=== PATIENT | female | born 1950 | race Caucasian/White ===

== ENCOUNTER 2021-09-06 06:58 | Day surgery (SDC) | payer MEDICARE, BC ==
[2021-09-05 14:47] VITALS: BMI 26.5
[2021-09-06] MEDS ORDERED: Fentanyl 100 MCG/2 ML VIAL ONE (08:12)
[2021-09-06] MEDS ORDERED: EPINEPHrine 1 MG/ML AMP ONE (09:19)
[2021-09-06 09:26] LABS: Hemoglobin 13.1 g/dL (12.0-16.0)
[2021-09-06] MEDS ORDERED: Propofol 500 MG/50 ML VIAL ONE (09:27)
[2021-09-06] MEDS ORDERED: Lidocaine 1% PF 5 ML VIAL ONE (09:33)
[2021-09-06] MEDS ORDERED: Dexamethasone 20 MG/5 ML VIAL ONE (09:33)
[2021-09-06] MEDS ORDERED: Ondansetron PF 4 MG/2 ML Vial ONE (09:33)
[2021-09-06] MEDS ORDERED: Succinylcholine 200 MG/10 ml SYRINGE FS ONE (09:33)
[2021-09-06 09:43] LABS: Anion Gap 12 mmol/L (10-20); BUN (Urea Nitrogen) 13 mg/dL (9.8-20.1); Calc. Creatinine Clearance 84 mL/min (70-130); Calcium 9.2 mg/dL (7.8-10.44); Carbon Dioxide 29 mmol/L (23-31); Chloride 101 mmol/L (98-107); Glucose 97 mg/dL (83-110); Potassium 4.2 mmol/L (3.5-5.1); Sodium 138 mmol/L (136-145)
== END 2021-09-06 12:50 | disposition home or self-care (01) ==
LOC: SDC 06:58
PROVIDERS: ATTEND Specialist
PROC: 3E0F8GC Introduction of Other Therapeutic Substance into Respiratory Tract, Via Natural or Artificial Opening Endoscopic (ICD-10-PCS; principal; 2021-09-06)
DX: J38.01 Paralysis of vocal cords and larynx, unilateral (principal); J38.3 Other diseases of vocal cords; I10 Essential (primary) hypertension; M19.90 Unspecified osteoarthritis, unspecified site; Z79.899 Other long term (current) drug therapy; Z98.1 Arthrodesis status
CPT/HCPCS: 36415; 80048; 85014; 85018; 93005; 93010; J0171; J1100; J2405; J2704; J3010

== ENCOUNTER 2022-01-03 06:55 | Day surgery (SDC) | payer MEDICARE, BC ==
[2021-12-31 15:40] VITALS: BMI 28.0
[2022-01-03] MEDS ORDERED: Propofol 500 MG/50 ML VIAL ONE (07:56)
[2022-01-03] MEDS ORDERED: Fentanyl 250 MCG/5 ML VIAL ONE ×2 (07:56→10:12)
[2022-01-03] MEDS ORDERED: EPINEPHrine 1 MG/ML AMP ONE (08:36)
[2022-01-03] MEDS ORDERED: Ciprofloxacin 0.2% Otic (0.25ML CONTAINER) ONE (08:36)
[2022-01-03 08:40] LABS: Hemoglobin 13.5 g/dL (12.0-16.0)
[2022-01-03 09:34] LABS: Anion Gap 15 mmol/L (10-20); BUN (Urea Nitrogen) 9 mg/dL (9.8-20.1); Calc. Creatinine Clearance 87 mL/min (70-130); Calcium 9.4 mg/dL (7.8-10.44); Carbon Dioxide 19 mmol/L (23-31); Chloride 102 mmol/L (98-107); Glucose 85 mg/dL (83-110); Potassium 4.1 mmol/L (3.5-5.1); Sodium 132 mmol/L (136-145)
[2022-01-03] MEDS ORDERED: PROPOFOL 200 MG/20 ML VIAL ONE (09:36)
[2022-01-03] MEDS ORDERED: Dexamethasone 20 MG/5 ML VIAL ONE (09:36)
[2022-01-03] MEDS ORDERED: Ondansetron PF 4 MG/2 ML Vial ONE (09:36)
[2022-01-03] MEDS ORDERED: Lidocaine 1% PF 5 ML VIAL ONE (09:36)
[2022-01-03] MEDS ORDERED: Hydrocodone-Acetamin 15 ML UDCUP ONE (11:27)
== END 2022-01-03 12:30 | disposition home or self-care (01) ==
LOC: SDC 06:55
PROVIDERS: ATTEND Specialist
PROC: 3E0F8GC Introduction of Other Therapeutic Substance into Respiratory Tract, Via Natural or Artificial Opening Endoscopic (ICD-10-PCS; principal; 2022-01-03)
DX: J38.01 Paralysis of vocal cords and larynx, unilateral (principal); Z79.899 Other long term (current) drug therapy; Z98.1 Arthrodesis status
CPT/HCPCS: 80048; 85014; 85018; 93005; 93010; C1776; J0171; J1100; J2405; J2704; J3010